=== PATIENT | male | born 1990 | race Caucasian/White ===

== ENCOUNTER 2018-07-08 15:54 | Emergency (ER) | payer MEDICARE, MEDICAID ==
[~2018-07-08] VITALS: Ht 175.3 cm; Wt 85.0 kg
[~2018-07-08 15:54] MED LIST: AMIT10TA PO; CINA30TA2 PO; CYCL-259 PO; DULO30CA2 PO; HYDR-3245 PO; HYDR-3342 PO; HYDR25TA6 PO; LABE100T6 PO; LAMO25TA13 PO; SEVE800T8 PO; TRAZ300T2 PO
[2018-07-08] MEDS ORDERED: SODIUM CHLORIDE FLUSH 10ML SYR IVF ONE (17:30)
[2018-07-08] MEDS ORDERED: ONDANSETRON ODT 4 MG PO ONE (17:30)
[2018-07-08] MEDS ORDERED: DIAZEPAM 5 MG/ML, 2ML IVPush ONE (17:30)
[2018-07-08] MEDS ORDERED: DIPHENHYDRAMINE 50 MG/ML, 1ML IVPush ONE (17:30)
[2018-07-08] MEDS ORDERED: ONDANSETRON ODT 4 MG ONE (17:44)
[2018-07-08] MEDS ORDERED: DIPHENHYDRAMINE 50 MG/ML, 1ML ONE (17:44)
[2018-07-08 17:53] LABS: BASOPHILS # (AUTO) 0.04 x10^3/uL (0-0.1); BASOPHILS % (AUTO) 1 % (0-1); EOSINOPHILS % (AUTO) 2 % (1-7); LYMPHOCYTES # (AUTO) 1.07 x10^3/uL (1-3.4); LYMPHOCYTES % (AUTO) 22 % (22-44); MD NO; MEAN CORPUSCULAR HEMOGLOBIN 33.2 pg (27.5-34.5); MEAN CORPUSCULAR HGB CONC 34.6 g/dL (33.2-36.2); MEAN CORPUSCULAR VOLUME 95.8 fL (81-97); MONOCYTES % (AUTO) 8 % (2-9); NEUTROPHILS # (AUTO) 3.26 x10^3/uL (1.8-6.8); NEUTROPHILS % (AUTO) 67 % (42-75); PLATELET COUNT 165 x10^3/uL (130-400); RED BLOOD COUNT 3.54 x10^6/uL (4.38-5.82)
[2018-07-08 18:12] LABS: CHLORIDE 97 mmol/L (98-107)
[2018-07-08 18:17] LABS: ALANINE AMINOTRANSFERASE 36 U/L (12-78); ALBUMIN 3.8 g/dL (3.4-5.0); ALKALINE PHOSPHATASE 266 U/L (45-117); ANION GAP 10 mmol/L (5-15); BILIRUBIN,TOTAL 0.8 mg/dL (0.2-1.0); CREATININE 6.03 mg/dL (0.7-1.3); TOTAL PROTEIN 6.9 g/dL (6.4-8.2)
[2018-07-08] MEDS ORDERED: DIAZEPAM 5 MG/ML, 10ML VIAL IV ONE (19:00)
[2018-07-08] MEDS ORDERED: LABETALOL 100 MG TABLET PO ONE (19:30)
[2018-07-08 19:53] VITALS: BP 175/116
== END 2018-07-08 20:23 | disposition home or self-care (01) ==
LOC: ED 20:17
DX: G44.039 Episodic paroxysmal hemicrania, not intractable (principal); I12.0 Hypertensive chronic kidney disease with stage 5 chronic kidney disease or end stage renal disease; N18.6 End stage renal disease; Z87.891 Personal history of nicotine dependence; F12.10 Cannabis abuse, uncomplicated
CPT/HCPCS: 36415; 70450; 80053; 85025; 96374; 96375; 96376; 99284; J1200; J3360; Q0162